=== PATIENT | female | born 1965 | race Caucasian/White ===

== ENCOUNTER → 2018-11-20 | Outpatient (CLI) | payer OTHER ==
[~2018-11-20] MED LIST: AMLO10 PO; ASPI325 PO; FLORA-Q PO; Glucosamine Co1 EAC1 PO; LEVSOD75 PO; LOSA50 PO; METO50ER; MULTI VITAMIN1 EACH PO; OXYACE5T PO; Super B Comple150 MG PO; UBID10 PO
== END | disposition home or self-care (01) ==
LOC: LAB SHORT 07:56 → PLD 07:56
DX: R93.89 Abnormal findings on diagnostic imaging of other specified body structures (principal); N95.0 Postmenopausal bleeding
CPT/HCPCS: 88305